=== PATIENT | male | born 1985 | race Caucasian/White ===

== ENCOUNTER 2017-08-06 02:59 | Emergency (ER) | payer MEDICAID ==
[~2017-08-06] VITALS: Ht 175.3 cm; Wt 82.5 kg
[2017-08-06 06:01] VITALS: BP 163/74
--- NOTE | 2017-08-06 09:55 | NUR ---
CANCELLATION REQUESTED FOR ECHOCARDIOGRAM
== END 2017-08-06 06:01 | disposition home or self-care (01) ==
LOC: ED 02:59
DX: R51 Headache (principal); J45.909 Unspecified asthma, uncomplicated
CPT/HCPCS: 83880; 84439; J1100; J1885; J2765

== ENCOUNTER 2018-05-30 08:53 | Emergency (ER) | payer MEDICAID ==
[~2018-05-30] VITALS: Ht 175.3 cm; Wt 80.7 kg
[2018-05-30 08:57] VITALS: Ht 175.3 cm; Wt 80.7 kg
[2018-05-30 10:55] VITALS: BP 188/97
== END 2018-05-30 11:05 | disposition home or self-care (01) ==
LOC: ED 08:53
DX: J45.901 Unspecified asthma with (acute) exacerbation (principal)
CPT/HCPCS: J7512; J7613; Q0092

== ENCOUNTER 2019-05-11 18:39 | Emergency (ER) | payer SELFPAY ==
[~2019-05-11] VITALS: Ht 175.3 cm; Wt 77.6 kg
[2019-05-11 18:58] VITALS: Ht 175.3 cm; Wt 77.6 kg
[2019-05-11 20:44] VITALS: BP 185/115
== END 2019-05-11 20:44 | disposition home or self-care (01) ==
LOC: ED 18:39
DX: M25.561 Pain in right knee (principal); J45.909 Unspecified asthma, uncomplicated
CPT/HCPCS: J1885